=== PATIENT | male | born 1950 | race Caucasian/White ===

== ENCOUNTER 2017-01-28 08:24 | Emergency (ER) | payer MEDICARE ==
[2017-01-28 09:58] LABS: BASOPHIL 0.5 % (0-2); EOSINOPHIL 3.5 % (0-7); HCT 37.9 % (42.0-52.0); HGB 13.2 g/dl (13.2-18.0); LYMPHOCYTE 10.4 % (15-48); MCH 33.6 pg (25.0-31.0); MCHC 34.8 g/dL (32.0-36.0); MCV 96.4 fL (78.0-100.0); MONOCYTE 8.7 % (0-12); MPV 9.5 fL (6.0-9.5); NEUTROPHIL 76.9 % (41-80); PLT 197 K/uL (150-400); RBC 3.93 M/uL (4.70-6.00); RDW 13.9 % (11.5-14.0); WBC 7.8 K/uL (4.0-10.5)
[2017-01-28 10:26] LABS: ALBUMIN 4.2 g/dL (3.4-4.8); BILIRUBIN - TOTAL 0.8 mg/dL (0.1-1.0); CREATININE 0.7 mg/dL (0.7-1.2); GLOBULIN (CALCULATION) 2.9 g/dL (2.2-4.2); POTASSIUM 4.2 mmol/L (3.5-5.1); TOTAL PROTEIN 7.1 g/dL (6.4-8.3)
== END 2017-01-28 10:45 | disposition home or self-care (01) ==
LOC: FER 08:24
PROVIDERS: Emergency Medicine
DX: I10 Essential (primary) hypertension (principal); E78.5 Hyperlipidemia, unspecified; K21.9 Gastro-esophageal reflux disease without esophagitis; Z79.82 Long term (current) use of aspirin; Z79.899 Other long term (current) drug therapy
CPT/HCPCS: 36415; 80053; 84484; 85025; 93005